=== PATIENT | male | born 1980 | race Caucasian/White ===

== ENCOUNTER 2022-11-10 18:23 | Emergency (ER) | payer OTHER, SELFPAY ==
--- NOTE | ~2022-11-10 | XR_ITS ---
EXAMINATION: XR CHEST CLINICAL INFORMATION: Dyspnea. COMPARISON: None available. TECHNIQUE: Frontal view of the chest was obtained. FINDINGS: No significant cardiomediastinal contour abnormality. No focal airspace opacity, pleural effusion or pneumothorax. No acute osseous abnormalities. The visualized upper abdomen is within normal limits. XR/XR chest 1V IMPRESSION: No acute cardiopulmonary findings.
[2022-11-10 18:34] VITALS: BP 128/81; BP 181/111; PULSE 87; PULSE 88; RESP 24; TEMP 36.9; O2SAT 100; O2SAT 99; BMI 29.1
[2022-11-10 18:50] LABS: Hematocrit 42.5 % (42.0-52.0); Hemoglobin 14.8 g/dl (14.0-18.0); Mean Corpuscular HGB Conc 34.8 g/dl (31.0-36.0); Mean Corpuscular Hemoglobin 30.5 pg (27.0-33.0); Mean Corpuscular Volume 87.6 fL (80.0-98.0); Mean Platelet Volume 9.8 fL (9.4-12.4); Platelet Count 307 X10*3/uL (160-400); Red Blood Count 4.85 X10*6/uL (4.60-5.80); Red Cell Distribution Width 12.9 % (11.0-16.0); White Blood Count 10.9 X10*3/uL (4.8-10.8)
--- NOTE | 2022-11-10 18:51 | ED.SOB ---
HPI - SOB/Dyspnea General Chief Complaint: Dyspnea Stated Complaint: SOB Time Seen by Provider: 11/10/22 18:35 Source: patient Mode of arrival: EMS Limitations: no limitations History of Present Illness HPI Narrative: Patient comes to the emergency room complaining of shortness of breath. According to the patient, he used his inhaler but did not work. By the time that he arrived to the hospital, patient was talking in full sentences, very minimally wheezing. Patient denies chest pain. Related Data Previous Rx's Medication Instructions Recorded albuterol sulfate 90 mcg/actuation 2 puff inhalation Q4-6H PRN 11/10/22 aerosol inhaler shortness of breath or wheezing #8.5 grams prednisone 50 mg tablet 50 mg PO DAILY #5 tabs 11/10/22 Allergies Allergy/AdvReac Type Severity Reaction Status Date / Time sulfamethoxazole Allergy Hives Verified 11/10/22 19:30 [From Bactrim] trimethoprim [From Bactrim] Allergy Hives Verified 11/10/22 19:30 Review of Systems Review of Systems: Constitutional : No Weight loss, No Fever, No Chills, No Night Sweats, No Fatigue, No Malaise ENT/Mouth : No Hearing loss, No Ear Pain, No Nasal Congestion, No Sinus Pain, No Hoarseness, No sore throat, No Rhinorrhea, No Swallowing Difficulty Eyes: No Eye Pain, No Swelling, No Redness, No Foreign Body, No Discharge, No Vision Changes Cardiovascular : No Chest Pain, No SOB, No Dyspnea on Exertion, No Orthopnea, No Edema, No Palpitations Respiratory : No Cough, No Sputum, complaining of Wheezing, No Smoke Exposure, No Dyspnea Gastrointestinal : No Nausea, No Vomiting, No Diarrhea, No Constipation, No abdominal Pain, No Hematochezia, No Melena Genitourinary : no irregular bleeding, No Dysuria, No Urinary Frequency, No Hematuria, No Urinary Incontinence, No Urgency, No Flank Pain, No Urinary Flow Changes, No Hesitancy Musculoskeletal : No joint pain, No Myalgias, No Joint Swelling Skin : No Skin Lesions, No rash Neuro : No Weakness, No Numbness, No Paresthesias, No Loss of Consciousness, No Dizziness, No Headache Psych : No Anxiety/Panic, No Depression, No SI/HI/AH/VH, No Social Issues, Heme/Lymph: No Bruising, No Bleeding,No Lymphadenopathy Endocrine : No Polyuria, No Polydipsia, No Temperature Intolerance [facility] Social History Social History Advance Directives: No Advance Directives Information Provided: No Physical Exam Vital Signs: Vital Signs: Last Vital Signs Temp 98.4 F 11/10/22 19:31 Pulse 82 11/10/22 19:31 Resp 20 11/10/22 19:31 BP 125/86 11/10/22 19:31 Pulse Ox 99 11/10/22 19:31 O2 Del Method Room Air 11/10/22 19:31 Oxygen Flow Rate 2 11/10/22 18:34 BMI result Body Mass Index 29.1 Const: Other: Appearance: Alert. Oriented X3. No acute distress. Eyes: Pupils equal, round and reactive to light. ENT: Pharynx normal. Neck: Normal inspection. Neck supple. No lymph nodes noted. No crepitus CVS: Normal heart rate and rhythm. Pulses normal. Normal S1 and S2 Respiratory: No respiratory distress. Breath sounds normal. No Wheezing. No rales Abdomen: Soft and nontender. No rigidity. No distention. Skin: Skin warm and dry. Normal skin color. Normal skin turgor. Extremities: No lower extremity edema. No Lacerations. No Rash Neuro: Oriented X 3. No motor deficit. No sensory deficit. Moving all extremities. No slurred speech. CN 2 through 12 grossly intact Psych: calm, cooperative, normal affect Course Course Course Narrative: -patient is doing fairly well, getting 1 neb treatment, magnesium and Solu-Medrol. Chest x-ray and labs pending. Medications Administered Generic Name Dose Route Start Last Admin Trade Name Freq PRN Reason Stop Dose Admin Magnesium Sulfate 2 gm in 50 mls @ 25 mls/hr 11/10/22 18:47 11/10/22 19:27 Magnesium Sulfate/H2o IV 11/10/22 20:46 25 mls/hr ONCE ONE Administration Discontinued Medications Generic Name Dose Route Start Last Admin Trade Name Freq PRN Reason Stop Dose Admin Albuterol Sulfate 2.5 mg 11/10/22 18:48 11/10/22 19:58 Albuterol Sulfate (0.083%) 2.5 Mg/3 Ml Vial.Neb INHALE 11/10/22 18:49 2.5 mg ONCE ONE Administration Methylprednisolone Sodium Succinate 125 mg 11/10/22 18:47 11/10/22 19:24 Methylprednisolone Sod Succ 125 Mg/2 Ml Vial IVPUSH 11/10/22 18:48 125 mg ONCE ONE Administration Medical Decision Making Medical Decision Making [facility] Narrative: -patient's labs are normal -chest x-ray interpreted by me, no acute abnormalities, no pneumonia -repeat physical exam, patient is saturating 100% on room air, he is not wheezing at all, good air movement Lab Data 11/10/22 18:42 11/10/22 18:42 Labs: Lab Results 11/10/22 11/10/22 11/10/22 Range/Units 18:42 18:42 19:07 WBC 10.9 H (4.8-10.8) X10*3/uL RBC 4.85 (4.60-5.80) X10*6/uL Hgb 14.8 (14.0-18.0) g/dl Hct 42.5 (42.0-52.0) % MCV 87.6 (80.0-98.0) fL MCH 30.5 (27.0-33.0) pg MCHC 34.8 (31.0-36.0) g/dl RDW 12.9 (11.0-16.0) % Plt Count 307 (160-400) X10*3/uL MPV 9.8 (9.4-12.4) fL Absolute Nucleated RBC 0.000 (0.0-0.012) X10*3/uL Nucleated RBC % (auto) 0.0 (0.0-0.2) /100WBC Sodium 141 (135-145) mmol/L Potassium 3.4 (3.3-5.1) mmol/L Chloride 106 (96-108) mmol/L Carbon Dioxide 23 (22-29) mmol/L Anion Gap 15 (12-20) BUN 13 (9-16) mg/dL Creatinine 1.11 (0.5-1.4) mg/dL Estim Creat Clear Calc 85.9 Estimated GFR > 60 Random Glucose 91 (60-115) mg/dL Calcium 9.3 (8.4-10.2) mg/dL Influenza Type A (PCR) NEGATIVE (Negative) Influenza Type B (PCR) NEGATIVE (Negative) RSV RNA Qual (PCR) NEGATIVE (Negative) SARS-CoV-2 RNA (RT-PCR) NEGATIVE (Negative) Discharge Plan Discharge Clinical Impression: Asthma Patient Disposition: Home, Self-Care Instructions: Asthma (ED) Additional Instructions: Please follow-up with your primary care physician tomorrow. If you have any worsening or new symptoms, please return to the emergency room or call 911 Prescriptions: New albuterol sulfate 90 mcg/actuation HFA aerosol inhaler 2 puff inhalation Q4-6H PRN (Reason: shortness of breath or wheezing) Qty: 8.5 0RF prednisone 50 mg tablet 50 mg PO DAILY Qty: 5 0RF
[2022-11-10] MEDS: methylPREDNISolone Sod Succ 125 MG/2 ML VIAL IVPUSH (19:24)
[2022-11-10 19:27] LABS: Anion Gap 15 (12-20); Blood Urea Nitrogen 13 mg/dL (9-16); Calcium 9.3 mg/dL (8.4-10.2); Carbon Dioxide 23 mmol/L (22-29); Chloride 106 mmol/L (96-108); Creatinine Clr Calc Pharmacy 85.9; Estimated Glomerular Filt Rate > 60; Glucose Random 91 mg/dL (60-115); Potassium 3.4 mmol/L (3.3-5.1); Sodium 141 mmol/L (135-145)
[2022-11-10] MEDS: Magnesium Sulfate/H2O 2 GM/50 ML PIGGYBACK IV (19:27)
[2022-11-10 19:28] LABS: Influenza A PCR NEGATIVE (Negative); Influenza B PCR NEGATIVE (Negative); Resp Syncy Virus RNA Qual PCR NEGATIVE (Negative); SARS COV2 PCR INHOUSE NEGATIVE (Negative)
[2022-11-10 19:31] VITALS: BP 125/86; PULSE 82; RESP 20; TEMP 36.9; O2SAT 99
--- NOTE | 2022-11-10 19:43 | PC.NURSE ---
This underwriter mortgage loan assumed care of this Pt at 1900. Pt A&Ox4, reports SOB with tightness to lungs , Pt speaking in full sentences, O2 sat 100% on 2L via NC, lung sounds diminished. VSS. Meds given as documented. RT notified about breathing tx.
[2022-11-10] MEDS: Albuterol Sulfate (0.083%) 2.5 MG/3 ML VIAL.NEB INHALE (19:58)
[2022-11-10 20:34] VITALS: BP 143/87; PULSE 87; RESP 16; TEMP 36.8; O2SAT 99
[2022-11-10 20:46] VITALS: BP 143/87; PULSE 93; RESP 18; O2SAT 100
== END 2022-11-10 20:49 | disposition home or self-care (01) ==
PROVIDERS: Emergency Provider Emergency Medicine
DX: J45.909 Unspecified asthma, uncomplicated (principal); R06.00 Dyspnea, unspecified; Z20.822 Contact with and (suspected) exposure to COVID-19
CPT/HCPCS: 0241U; 71045; 80048; 85027; 96365; 96375; 99284; J2930; J3475

== ENCOUNTER 2022-12-16 09:42 | Emergency (ER) | payer OTHER, SELFPAY ==
[2022-12-16 09:45] VITALS: BP 144/90; PULSE 72; RESP 20; TEMP 36.8; O2SAT 98; BMI 25.7
[2022-12-16 10:23] LABS: MANUAL DIFF FLAG NO
[2022-12-16] MEDS: Ketorolac Tromethamine 15 MG/ML VIAL IVPUSH (10:26)
[2022-12-16 10:27] LABS: Basophils Percent Auto 0.2 % (0-2); Eosinophils Percent Auto 0.2 % (0-4); Hematocrit 47.3 % (42.0-52.0); Hemoglobin 15.9 g/dl (14.0-18.0); Imm Gran Abs Auto 0.03 X10*3/uL (0.00-0.03); Imm Gran Pct Auto 0.3 % (0.0-0.4); Lymphocytes Absolute Auto 1.2 X10*3/uL (1.2-4.9); Lymphocytes Percent Auto 11.6 % (20-40); Mean Corpuscular HGB Conc 33.6 g/dl (31.0-36.0); Mean Corpuscular Hemoglobin 30.8 pg (27.0-33.0); Mean Corpuscular Volume 91.5 fL (80.0-98.0); Mean Platelet Volume 9.8 fL (9.4-12.4); Monocytes Absolute Auto 0.7 X10*3/uL (0.1-1.2); Monocytes Percent Auto 6.4 % (2-11); Neutrophils Absolute Auto 8.4 x10*3/uL (2.0-8.3); Neutrophils Percent Auto 81.3 % (45-73); Platelet Count 359 X10*3/uL (160-400); Red Blood Count 5.17 X10*6/uL (4.60-5.80); Red Cell Distribution Width 13.2 % (11.0-16.0); White Blood Count 10.3 X10*3/uL (4.8-10.8)
[2022-12-16] MEDS: 0.9 % Sodium Chloride 1,000 ML 999 ML IV (10:28)
[2022-12-16] MEDS: ondansetron HCL 4 MG/2 ML VIAL IVPUSH (10:28)
[2022-12-16] MEDS: Famotidine/PF 20 MG/2 ML VIAL IVPUSH (10:29)
[2022-12-16 10:32] VITALS: BP 123/64; PULSE 67; RESP 30; TEMP 36.8; O2SAT 99
--- NOTE | 2022-12-16 10:35 | ED_ITS ---
HPI - Abdominal Pain General Chief Complaint: Abdominal Pain Stated Complaint: nausea, vomiting Time Seen by Provider: 12/16/22 09:49 Source: patient Mode of arrival: ambulatory Limitations: no limitations History of Present Illness MD elicited complaint: abdominal pain Pertinent past history: none Onset (ago): day(s) (1) Pain Consistency: constant Location: epigastric Severity: severe Pain scale (0-10): 10 Quality: cramping, stabbing and aching Radiation: none Migration to: no migration Exacerbating factors: eating Relieving factors: vomiting Associated symptoms: fever, chills, constipation and anorexia Related Data Previous Rx's Medication Instructions Recorded albuterol sulfate 90 mcg/actuation 2 puff inhalation Q4-6H PRN 11/10/22 aerosol inhaler shortness of breath or wheezing #8.5 grams prednisone 50 mg tablet 50 mg PO DAILY #5 tabs 11/10/22 pantoprazole 40 mg tablet,delayed 40 mg PO DAILY #30 tabs 12/16/22 release Allergies Allergy/AdvReac Type Severity Reaction Status Date / Time sulfamethoxazole Allergy Hives Verified 11/10/22 19:30 [From Bactrim] trimethoprim [From Bactrim] Allergy Hives Verified 11/10/22 19:30 Review of Systems Review of Systems CONSTITUTIONAL: Denies weight loss, fever and chills. HEENT: Denies changes in vision and hearing. RESPIRATORY: Denies SOB and cough. CV: Denies palpitations no CP. GI: + abdominal pain, nausea, vomiting - diarrhea. : Denies dysuria and urinary frequency. MSK: Denies myalgia and joint pain. SKIN: Denies rash and pruritus. NEUROLOGICAL: Denies headache and syncope. PSYCHIATRIC: Denies recent changes in mood. Denies anxiety and depression. All other ROS are negative unless in HPI PMFSH Social History Social History Smoked in Last 30 Days: Yes Substance Use Type: Crack/Cocaine, Heroin and Marijuana Advance Directives: No Physical Exam ED Vital Signs: Vital Signs - 24 hr 12/16/22 09:45 12/16/22 10:32 Temperature 98.3 F 98.2 F Pulse Rate 72 67 Respiratory Rate 20 30 H Blood Pressure 144/90 H 123/64 Pulse Oximetry 98 99 Oxygen Delivery Method Room Air Room Air BMI result Body Mass Index 25.7 GEN: Well developed, acute distress, alert, oriented HEENT: Normocephalic, atraumatic, normal external ears, nose appears normal, no oropharyngeal edema or exudates Eyes: Normal to appearance Neck: Supple, no lymphadenopathy Respiratory: Talks in complete sentences, no respiratory distress, clear to auscultation bilaterally Cardiovascular: Regular rate and rhythm, no murmurs rubs or gallops Abdomen: Soft, positive upper abdominal tenderness, nondistended, no guarding, no rebound, negative Cortez sign, negative McBurney's point tenderness Back: No CVA tenderness Extremities: No clubbing cyanosis or edema Neurologic: No focal neurologic deficits, cranial nerves 2-12 intact, strength is 5/5 bilaterally Skin: No rash Course Reevaluation(s) Reevaluation #1: Patient with persistent pain. Will try GI cocktail. Exam and presentation is most consistent with alcoholic gastritis or peptic ulcer disease. Will re-evaluate following GI cocktail. Time: 13:02 Reevaluation #2: Patient is feeling much better at this time. He had a GI cocktail. Suspect alcoholic gastritis. I recommended abstinence. He does have a referral to GI doctor. He likely needs an upper endoscopy. Patient was counseled to return to the emergency department for dark black stool or hematemesis. Time: 13:59 Medical Decision Making Medical Decision Making [facility] Narrative: 42-year-old male presents with upper abdominal pain, nausea, vomiting const ipation. He has negative Cortez sign negative McBurney's point tenderness. Doubt acute cholecystitis or acute appendicitis. Likely diagnosis would be gastritis, peptic ulcer disease, gastroenteritis. He does drink about a 5th of alcohol daily. Differential diagnosis is broad and includes pancreatitis, gastritis, peptic ulcer, biliary, colitis, diverticulitis, IBD, IBS. At this point, will withhold CT scan but will re-evaluate patient to determine if imaging is appropriate. Imaging may also be an ultrasound however, doubt this will help us with our diagnosis. In the meantime, patient will have IV fluids, antiemetics, analgesia with frequent re-evaluation and also H2 cathryn Differential Diagnosis Differential Diagnoses: The differential diagnosis associated with the presentation includes (See above) Upper abdominal pain Admission/Observation Consideration of admission/observation: Escalation of care including admission/observation considered (Patient may warrant hospitalization if he continues to have intractable abdominal pain, nausea or vomiting.) Lab Data [facility] Lab Attestation statement: I reviewed the patient's lab results. 12/16/22 10:13 12/16/22 10:13 Labs: Lab Results 12/16/22 12/16/22 Range/Units 10:13 10:37 WBC 10.3 (4.8-10.8) X10*3/uL RBC 5.17 (4.60-5.80) X10*6/uL Hgb 15.9 (14.0-18.0) g/dl Hct 47.3 (42.0-52.0) % MCV 91.5 (80.0-98.0) fL MCH 30.8 (27.0-33.0) pg MCHC 33.6 (31.0-36.0) g/dl RDW 13.2 (11.0-16.0) % Plt Count 359 (160-400) X10*3/uL MPV 9.8 (9.4-12.4) fL Immature Gran % (Auto) 0.3 (0.0-0.4) % Neut % (Auto) 81.3 H (45-73) % Lymph % (Auto) 11.6 L (20-40) % [place] % (Auto) 6.4 (2-11) % Eos % (Auto) 0.2 (0-4) % Baso % (Auto) 0.2 (0-2) % Lymph # (Auto) 1.2 (1.2-4.9) X10*3/uL [place] # (Auto) 0.7 (0.1-1.2) X10*3/uL Eos # (Auto) 0.0 (0.0-0.4) X10*3/uL Baso # (Auto) 0.0 (0.0-0.2) X10*3/uL Abs Immat Gran (auto) 0.03 (0.00-0.03) X10*3/uL Absolute Neuts (auto) 8.4 H (2.0-8.3) x10*3/uL Absolute Nucleated RBC 0.000 (0.0-0.012) X10*3/uL Nucleated RBC % (auto) 0.0 (0.0-0.2) /100WBC Sodium 137 (135-145) mmol/L Potassium 3.8 (3.3-5.1) mmol/L Chloride 103 (96-108) mmol/L Carbon Dioxide 24 (22-29) mmol/L Anion Gap 14 (12-20) BUN 16 (9-16) mg/dL Creatinine 0.93 (0.5-1.4) mg/dL Estim Creat Clear Calc 88.4 Estimated GFR > 60 Random Glucose 108 (60-115) mg/dL Calcium 9.4 (8.4-10.2) mg/dL Total Bilirubin 0.8 (0.0-1.0) mg/dL AST 23 (5-37) U/L ALT 16 (0-40) U/L Alkaline Phosphatase 60 (39-117) U/L Total Protein 7.3 (6.5-8.0) g/dL Albumin 4.0 (3.5-5.0) g/dL Lipase 63 (8-78) U/L Ethyl Alcohol < 10 mg/dL Prescription Management I considered prescription management with: Pain Medication Medications Administered Discontinued Medications Generic Name Dose Route Start Last Admin Trade Name Judsonq PRN Reason Stop Dose Admin Al Hydroxide/Mg Hydroxide 30 ml 12/16/22 13:31 12/16/22 13:37 Magnesium Hydrox/Alum Hydrox 30 Ml Oral.Susp PO 12/16/22 13:32 30 ml ONCE ONE Administration Belladonna Alkaloids/Phenobarbital 10 ml 12/16/22 13:31 12/16/22 13:37 Phenobarb/Hyoscy/Atropine/Scop 10 Ml Elixir PO 12/16/22 13:32 10 ml ONCE ONE Administration Famotidine 20 mg 12/16/22 10:12/16/22 10:29 Famotidine/Pf 20 Mg/2 Ml Vial IVPUSH 12/16/22 10:07 20 mg ONCE ONE Administration Sodium Chloride 1,000 mls @ 999 mls/hr 12/16/22 10:15 12/16/22 11:33 Ns IV 12/16/22 11:15 Infused .Q1H1M OLAF Infusion Ketorolac Tromethamine 15 mg 12/16/22 10:12/16/22 10:26 Ketorolac Tromethamine 15 Mg/Ml Vial IVPUSH 12/16/22 10:07 15 mg ONCE ONE Administration Ondansetron HCl 4 mg 12/16/22 10:06 12/16/22 10:28 Ondansetron Hcl 4 Mg/2 Ml Vial IVPUSH 12/16/22 10:07 4 mg ONCE ONE Administration Discharge Plan Discharge Clinical Impression: Abdominal pain, Gastritis, Alcohol abuse Patient Disposition: Home, Self-Care Instructions: Abuse of Alcohol (DC), Gastritis (ED) Prescriptions: New pantoprazole 40 mg tablet,delayed release (DR/EC) 40 mg PO DAILY Qty: 30 0RF No Action albuterol sulfate 90 mcg/actuation HFA aerosol inhaler 2 puff inhalation Q4-6H PRN (Reason: shortness of breath or wheezing) Qty: 8.5 0RF prednisone 50 mg tablet 50 mg PO DAILY Qty: 5 0RF Referrals: Physician,Unknown J [Primary Care Provider] - (Primary care provider 3-5 days)
[2022-12-16 11:10] LABS: Alanine Aminotransferase 16 U/L (0-40); Alkaline Phosphatase 60 U/L (39-117); Anion Gap 14 (12-20); Aspartate Amino Transferase 23 U/L (5-37); Bilirubin Total 0.8 mg/dL (0.0-1.0); Blood Urea Nitrogen 16 mg/dL (9-16); Calcium 9.4 mg/dL (8.4-10.2); Carbon Dioxide 24 mmol/L (22-29); Chloride 103 mmol/L (96-108); Creatinine Clr Calc Pharmacy 88.4; Estimated Glomerular Filt Rate > 60; Ethanol < 10 mg/dL; Glucose Random 108 mg/dL (60-115); Lipase 63 U/L (8-78); Potassium 3.8 mmol/L (3.3-5.1); Sodium 137 mmol/L (135-145); Total Protein 7.3 g/dL (6.5-8.0)
--- NOTE | 2022-12-16 11:34 | PC.NURSE ---
pt a&o x4, pleasant, calm, and cooperative. sitting in chair, leaned over due to abdominal pain. IV started by Dr. Kelley, IV placed in RAC. pt medicated per aug. currently resting comfortably, sleeping. in no apparent distress. rr even/unlabored. wctm
[2022-12-16] MEDS: PHENobarb/Hyoscy/Atropine/Scop 10 ML ELIXIR PO (13:37)
[2022-12-16] MEDS: Magnesium Hydrox/Alum Hydrox 30 ML ORAL.SUSP PO (13:37)
[2022-12-16 14:05] VITALS: BP 122/74; PULSE 58; RESP 16; TEMP 36.7; O2SAT 100
== END 2022-12-16 14:11 | disposition home or self-care (01) ==
PROVIDERS: Emergency Provider Emergency Medicine
DX: K29.70 Gastritis, unspecified, without bleeding (principal); R10.9 Unspecified abdominal pain; F10.10 Alcohol abuse, uncomplicated; Y90.0 Blood alcohol level of less than 20 mg/100 ml; F17.200 Nicotine dependence, unspecified, uncomplicated; Z79.899 Other long term (current) drug therapy
CPT/HCPCS: 36415; 80053; 80307; 83690; 85025; 96361; 96374; 96375; 99284; 99285; J1885; J2405

== ENCOUNTER 2023-01-07 07:39 | Emergency (ER) | payer OTHER, SELFPAY ==
[2023-01-07 07:42] VITALS: BP 135/87; PULSE 91; RESP 16; TEMP 36.1; O2SAT 98; BMI 23.3
--- NOTE | 2023-01-07 08:13 | ED.GENADULT ---
HPI - General Adult General Chief complaint: Back Pain/Injury Stated complaint: stiff neck to lower back Time Seen by Provider: 01/07/23 08:13 Source: patient Mode of arrival: ambulatory Limitations: no limitations History of Present Illness HPI narrative: Patient is a 42 year old assigned male at with no reported medical history presenting to the emergency department today with upper back pain. Patient states that starting yesterday he began to have pain in the middle of his shoulder blades. Patient states that it hurts to touch. Patient states that he isn't sure what he did but he worked through it all day. Patient denies any dizziness, lightheadedness, abdominal pain, nausea, vomiting, fever, chills, blurry vision, double vision, loss of vision, chest pain, difficulty breathing, shortness of breath, night sweats, pain with urination, increased urinary frequency, increased urinary urgency, blood in his urine or stool, syncope or a near syncopal episode, recent trauma or falls, bowel incontinence, bladder incontinence, bowel retention, bladder retention, or any other complaints at this time. Onset (ago): day(s) (1) Location: back Radiation: non-radiation Severity: mild Severity scale (1-10): 3 Quality: aching Pain Consistency: constant Relieving factors: none Exacerbating factors: other (palpation) Associated symptoms: denies other symptoms Treatments prior to arrival: none Related Data Previous Rx's Medication Instructions Recorded albuterol sulfate 90 mcg/actuation 2 puff inhalation Q4-6H PRN 11/10/22 aerosol inhaler shortness of breath or wheezing #8.5 grams prednisone 50 mg tablet 50 mg PO DAILY #5 tabs 11/10/22 pantoprazole 40 mg tablet,delayed 40 mg PO DAILY #30 tabs 12/16/22 release cyclobenzaprine 5 mg tablet 5 mg PO TID PRN muscle spasm 7 01/07/23 days #21 tabs naproxen 500 mg tablet 500 mg PO BID 7 days #14 tabs 01/07/23 prednisone 20 mg tablet 20 mg PO DAILY 7 days #7 tabs 01/07/23 Allergies Allergy/AdvReac Type Severity Reaction Status Date / Time sulfamethoxazole Allergy Hives Verified 01/07/23 07:47 [From Bactrim] trimethoprim [From Bactrim] Allergy Hives Verified 07/20/23 07:47 Review of Systems Constitutional: Constitutional: Reports no additional constitutional complaints, Denies chills, Denies fever(s) and Denies night sweats Eyes: Eyes: Reports no additional eye complaints, Denies blurry vision, Denies change in vision, Denies diplopia, Denies eye discharge, Denies loss of vision and Denies eye pain ENT: Denies dizziness Cardiovascular: Cardiovascular: Reports no additional cardiovascular complaints, Denies chest pain, Denies lightheadedness, Denies Loss of Consciousness and Denies dyspnea Respiratory: Respiratory: Reports no additional respiratory complaints and Denies dyspnea Gastrointestinal: Gastrointestinal: Reports no additional gastrointestinal complaints, Denies abdominal pain, Denies melena, Denies hematochezia, Denies change in bowel habits and Denies change in stool character Genitourinary: Genitourinary: Reports no additional male genitourinary complaints, Denies hematuria, Denies oliguria, Denies difficulty urinating, Denies dysuria, Denies urinary frequency, Denies urinary hesitancy, Denies urinary incontinence and Denies urinary urgency Musculoskeletal: Musculoskeletal: Reports no additional musculoskeletal complaints, Reports back pain, Denies numbness and Denies tingling Neurologic: Denies dizziness, Denies loss of vision, Denies numbness and Denies tingling Psychiatric: Psychiatric: Reports no additional psychiatric complaints Endocrine: Endocrine: Reports no additional endocrine complaints Hematologic/Lymphatic: Hematologic/Lymphatic: Reports no additional hematologic/lymphatic complaints Allergic/Immunologic: Allergic/Immunologic: Reports no additional allergic/immunologic complaints PMFSH Past Medical History Attestation statement: The following information was validated with the patient. Source: old records reviewed and nursing notes reviewed Social History Social History Substance Use Type: Crack/Cocaine, Heroin and Marijuana Advance Directives: No Advance Directives Information Provided: No Physical Exam ED Vital Signs: Vital Signs - 24 hr 01/07/23 07:42 Temperature 97 F Pulse Rate 91 Respiratory Rate 16 Blood Pressure 135/87 Pulse Oximetry 98 Oxygen Delivery Method Room Air BMI result Body Mass Index 23.3 Const General: cooperative, no acute distress, alert and awake Nutritional Appearance: well nourished Orientation/consciousness: patient oriented x3 Limitations: no limitations HENMT Head: Yes normal to inspection and Yes atraumatic Ears: hearing grossly normal bilaterally and external ears normal General nose exam: Normal external nose present, no nasal discharge noted and no epistaxis Face and sinus: Yes normal facial exam, No abrasion and No laceration Mouth: Normal oral and palatal mucosa present, no drooling and no muffled voice Eyes General: appearance normal, both eyes and all related structures Periorbital: periorbital findings normal Eyelids: Yes eyelids normal Conjunctivae: conjunctivae normal Pupils: Equal, round and reactive pupils present EOM: EOMs intact bilaterally Neck Neck: Yes normal visual inspection, Yes full ROM and Yes no lymphadenopathy Chest Chest palpation & inspection: normal inspection of the chest Resp Effort & Inspection: normal respiratory effort and able to speak in complete sentences GI Inspection: Yes normal to inspection Back/Spine/Pelvis Other: pain with palpation of the left thoracic back, contracted muscle fiber felt in the area of palpation Neuro General: patient oriented x3 and moves all extremities Cranial nerves: Yes Equal, round and reactive pupils present Cognition (Neuro): normal cognition Motor exam (neuro): 5/5 motor strength present throughout Sensory Exam: Normal double simultaneous stimulation for sensation Coordination: [id number] test normal Extrem General: Yes normal to inspection, Yes full ROM and Yes capillary refill normal Psych Appearance: grossly normal Mental Status: mental status grossly normal Affect: normal affect Attitude: cooperative Thought process: Normal thought process present Thought content: Normal thought content present Insight: Good insight present (Psych) Medical Decision Making Medical Decision Making MDM Narrative: Patient is a 42 year old assigned male at with no reported medical history presenting to the emergency department today with thoracic back pain. Patient's physical exam showed pain with palpation of the left thoracic back with contracted muscle fiber in the area of pain. This is consistent with a muscle spasm. I explained my physical exam findings to the patient. I answered all questions asked by the patient. Patient received IM Toradol, PO Prednisone, and PO Flexeril which he stated helped his symptoms significantly. I stressed the importance of the patient taking his medication as prescribed. I stressed the importance of the patient following up with his primary care provider and if pain persists >1 week, following up with a oncology account specialist. I stressed the importance of the patient returning to the emergency department immediately if his symptoms were to worsen or if he were to develop any dizziness, shortness of breath, difficulty breathing, chest pain, blurry vision, loss of vision, nausea, vomiting, abdominal pain, fever, chills, back pain, or any other complaints. Patient verbalized agreement and understanding with this treatment plan and discharge. Differential Diagnosis Differential Diagnoses: The differential diagnosis associated with the presentation includes Muscle sprain Muscle strain Muscle spasm Pinched nerve Back pain Prescription Management I considered prescription management with: Pain Medication (patient's prescribed naproxen, prednisone, and flexeril.) Discharge Plan Discharge Clinical Impression: Pinched nerve Patient Disposition: Home, Self-Care Instructions: Back Pain (ED) Additional Instructions: Apply a heating pad to the area. Follow up with your primary care provider. Return to the emergency department immediately if your symptoms worsen or if you develop any dizziness, shortness of breath, difficulty breathing, chest pain, blurry vision, loss of vision, nausea, vomiting, abdominal pain, fever, chills, back pain, or any other complaints. Prescriptions: New cyclobenzaprine 5 mg tablet 5 mg PO TID PRN (Reason: muscle spasm) 7 Days Qty: 21 0RF prednisone 20 mg tablet 20 mg PO DAILY 7 Days Qty: 7 0RF naproxen 500 mg tablet 500 mg PO BID 7 Days Qty: 14 0RF No Action albuterol sulfate 90 mcg/actuation HFA aerosol inhaler 2 puff inhalation Q4-6H PRN (Reason: shortness of breath or wheezing) Qty: 8.5 0RF prednisone 50 mg tablet 50 mg PO DAILY Qty: 5 0RF pantoprazole 40 mg tablet,delayed release (DR/EC) 40 mg PO DAILY Qty: 30 0RF Referrals: [facility] [Provider Group] (If your pain persists >1 week - call to establish and follow up with a oncology account specialist. ) Andrew Pope MD [Primary Care Provider] - Stand Alone Forms: Work/School Release Print Language: Slovak
[2023-01-07] MEDS: Ketorolac Tromethamine 15 MG/ML VIAL IM (08:40)
[2023-01-07] MEDS: predniSONE 20 MG TABLET PO (08:40)
[2023-01-07] MEDS: Cyclobenzaprine HCl 5 MG TABLET PO (08:40)
== END 2023-01-07 08:55 | disposition home or self-care (01) ==
PROVIDERS: Emergency Provider Emergency Medicine; PCP Internal Medicine
DX: G58.9 Mononeuropathy, unspecified (principal)
CPT/HCPCS: 96372; 99283; 99284; J1885